=== PATIENT | female | born 1960 | race Caucasian/White ===

== ENCOUNTER 2020-04-09 12:01 | Outpatient (CLI) | payer BC, SELFPAY ==
[2020-04-09 12:55] LABS: Hematocrit 42.4 % (37.0-47.0); Hemoglobin 13.9 g/dL (12.0-15.0); Mean Corpuscular HGB Conc 32.8 g/dl (32-36); Mean Corpuscular Hemoglobin 30.5 pg (26-34); Mean Platelet Volume 8.8 fl (7.4-10.4); Platelet Count Result 265 k/mm3 (150-375); Red Blood Count 4.56 M/mm3 (4.2-5.4); Red Cell Distribution Width 12.5 % (11.5-14.5); White Blood Count 5.6 K/mm3 (4.5-10.0)
[2020-04-09 13:07] LABS: Alanine Aminotransferase 20 U/L (4-35); Albumin Level 4.2 g/dL (3.5-5.1); Alkaline Phosphatase 64 U/L (38-126); Anion Gap 8 mmol/L (8-16); Aspartate Amino Transferase 27 U/L (14-36); Bilirubin,Total 0.4 mg/dL (0.2-1.3); Blood Urea Nitrogen 14 mg/dL (7-17); Calcium 9.4 mg/dL (8.4-10.2); Carbon Dioxide 32 mmol/L (22-30); Chloride 101 mmol/L (98-107); Cholesterol 251 mg/dL (0-200); Estimated Glomerular Filt Rate > 60; Glucose 90 mg/dL (65-105); HDL Direct 48 mg/dL; Potassium 4.4 mmol/L (3.4-5.0); Sodium 141 mmol/L (137-145); Triglycerides 191 mg/dL (<150)
[2020-04-09 13:19] LABS: LDL Cholesterol Direct 165 mg/dL
[2020-04-09 13:45] LABS: Free T4 Free Thyroxine 0.93 ng/mL (0.78-2.19)
== END 2020-04-09 12:02 | disposition home or self-care (01) ==
PROVIDERS: PCP Internal Medicine; Visit Provider Nurse Practitioner Family
DX: Z00.01 Encounter for general adult medical examination with abnormal findings (principal)
CPT/HCPCS: 36415; 80053; 80061; 84439; 84443; 85027

== ENCOUNTER 2020-05-05 15:43 | Outpatient (CLI) | payer BC, SELFPAY ==
--- NOTE | ~2020-05-05 | MM_ITS ---
EXAMINATION: MM screening [facility] BI w jose angel HISTORY: Screening mammogram TECHNIQUE: Craniocaudal and mediolateral oblique 3-D tomosynthesis images were obtained and synthetic 2-D images were generated. CAD analysis was submitted and interpreted. COMPARISON: No prior mammogram is available for comparison at this institution. BREAST PARENCHYMAL COMPOSITION: There are scattered areas of fibroglandular density. FINDINGS: There is no evidence of suspicious mass, calcification, or architectural distortion to sugg est malignancy in either breast. There has been no suspicious interval change. IMPRESSION: 1. No mammographic evidence of malignancy. 2. Recommend routine screening mammography in one year. BI-RADS Category 1: Negative Reviewed, dictated and finalized at location A. N BELT
== END 2020-05-05 15:44 | disposition home or self-care (01) ==
PROVIDERS: PCP Internal Medicine; Visit Provider Internal Medicine
DX: Z12.31 Encounter for screening mammogram for malignant neoplasm of breast (principal)
CPT/HCPCS: 77063; 77067

== ENCOUNTER 2020-11-20 22:13 | Emergency (ER) | payer BC, SELFPAY ==
[2020-11-20] VITALS (7 sets, daily range): BP systolic 121–131; BP diastolic 80–86; PULSE 48–86; RESP 14–24; TEMP 37.6; O2SAT 95–98
--- NOTE | ~2020-11-20 | XR_ITS ---
EXAMINATION: XR chest 1V portable DATE: 11/20/2020 22:54 INDICATION: Shortness of breath. Cough. COVID-19 positive. TECHNIQUE: A single frontal view of the chest was obtained. COMPARISON: None. FINDINGS: There are mild airspace opacities in the lower lung zones. No pleural effusion or pneumotho rax. The heart size is normal. IMPRESSION: 1. Mild airspace opacities in the lower lung zones, consistent with atelectasis versus pneumonia. Reviewed, dictated and finalized at location A.
--- NOTE | 2020-11-20 22:22 | ECG_ITS ---
Measurements Intervals [place] Rate: 73 P: 61 MN: 142 QRS: 44 QRSD: 81 T: -2 QT: 360 QTc: 399 Interpretive Statements SINUS RHYTHM NONSPECIFIC T-WAVE ABNORMALITY- ANT/INF LEADS BORDERLINE ECG Electronically Signed On 11-21-2020 6:25:57 CDT by Jona Farley D.O.
--- NOTE | 2020-11-20 22:28 | ED.SOB ---
HPI - SOB/Dyspnea General Chief Complaint: Shortness of Breath/Dyspnea Stated Complaint: SOB, covid + Time Seen by Provider: 11/20/20 22:28 History of Present Illness HPI Narrative: 60 yo female presents to the ED for SOB. She was diagnosed with COVID-19 9 days ago. She has had cough, headache, mild temperature elevations. Tonight after coughing she could not catch her breath. No chest pain, nausea, vomiting, weakness, dizziness. Related Data Home Medications Medication Instructions Recorded Confirmed No Home Medications 11/20/20 11/20/20 Allergies Allergy/AdvReac Type Severity Reaction Status Date / Time No Known Allergies Allergy Verified 11/20/20 22:41 Review of Systems Review of Systems: All systems reviewed & are unremarkable except as noted in HPI and below Constitutional: Constitutional: Denies weakness ENT: Denies sore throat Cardiovascular: Cardiovascular: Denies chest pain Respiratory: Respiratory: Reports cough and Reports dyspnea Gastrointestinal: Gastrointestinal: Denies abdominal pain Genitourinary: Genitourinary: Reports no additional female genitourinary complaints Musculoskeletal: Musculoskeletal: Reports myalgias Neurologic: Reports system reviewed and no additional complaints, except as documented [facility] Social History Social History (Updated 11/20/20 @ 23:28 by Isra Woodward MD) Smoking status: Never smoker Gender identity (if verbalized by the patient): Female Exam Const: General: healthy appearing, no acute distress and alert Orientation/consciousness: patient oriented x3 HENMT: Head: normal to inspection Neck: Neck: normal visual inspection and no lymphadenopathy Resp: Effort & Inspection: normal respiratory effort Auscultation: clear to auscultation bilaterally, crackles bilateral at the base and no wheezes Cardio: Jugular venous distension: no JVD Rate: regular rate Rhythm: regular rhythm Heart sounds: no murmurs GI: Inspection: non-distended GI Palp: Yes Soft to palpation and No Tenderness to palpation present (GI) Skin: General skin exam: normal color Neuro: General: patient oriented x3 and moves all extremities Speech: normal speech Extrem: General: no edema Psych: Appearance: well kempt Affect: normal affect Course Vital Signs Vital signs: Vital Signs Temperature 37.6 C 11/20/20 22:21 Pulse Rate 48 L 11/20/20 22:21 Respiratory Rate 14 11/20/20 22:21 Blood Pressure 131/86 11/20/20 22:21 Pulse Oximetry 95 11/20/20 22:21 Temperature 37.6 C 11/20/20 22:21 Pulse Rate 86 11/20/20 23:45 Respiratory Rate 14 11/20/20 23:45 Blood Pressure 121/80 11/20/20 23:31 Pulse Oximetry 97 11/20/20 23:45 MDM - SOB/Dyspnea Differential Diagnosis Differential diagnosis: Likely other (COVID-19) Medical Records Attestation: I reviewed the patient's medical records. Lab Data Attestation: I reviewed the patient's lab results. Result diagrams: 11/20/20 22:29 11/20/20 22:29 Labs: Lab Results 11/20/20 11/20/20 Range/Units 22:29 22:29 WBC 3.8 L (4.5-10.0) K/mm3 RBC 4.39 (4.2-5.4) M/mm3 Hgb 13.4 (12.0-15.0) g/dL Hct 40.4 (37.0-47.0) % MCV 92.0 (80-100) fl MCH 30.5 (26-34) pg MCHC 33.2 (32-36) g/dl RDW 12.5 (11.5-14.5) % Plt Count 192 (150-375) k/mm3 MPV 9.1 (7.4-10.4) fl Immature Gran % (Auto) 0.5 (0-0.5) % Neut % (Auto) 43.1 L (45.5-73.1) % Lymph % (Auto) 47.8 H (18.3-44.2) % [place] % (Auto) 7.6 (2.6-8.5) % Eos % (Auto) 0.5 (0-4.4) % Baso % (Auto) 0.5 (0.2-1.2) % Lymph # (Auto) 1.82 (0.9-3.2) K/mm3 [place] # (Auto) 0.3 (0.1-0.6) K/mm3 Eos # (Auto) 0.0 (0-0.3) K/mm3 Baso # (Auto) 0.0 (0.0-0.1) K/mm3 Abs Immat Gran (auto) 0.02 (0.00-0.031) K/mm3 Absolute Neuts (auto) 1.6 (1.3-6.7) K/mm3 Absolute Nucleated RBC 0.0 (0.0-0.012) K/mm3 Nucleated RBC % 0.0 (0.0-0.2) % Sodium 140 (137-145) m
[2020-11-20 22:39] LABS: Basophils Percent Auto 0.5 % (0.2-1.2); Eosinophils Percent Auto 0.5 % (0-4.4); Hematocrit 40.4 % (37.0-47.0); Hemoglobin 13.4 g/dL (12.0-15.0); Immature Granulocyte Absolute 0.02 K/mm3 (0.00-0.031); Immature Granulocyte Percent A 0.5 % (0-0.5); Lymphocytes Absolute Auto 1.82 K/mm3 (0.9-3.2); Lymphocytes Percent Auto 47.8 % (18.3-44.2); Mean Corpuscular HGB Conc 33.2 g/dl (32-36); Mean Corpuscular Hemoglobin 30.5 pg (26-34); Mean Platelet Volume 9.1 fl (7.4-10.4); Monocytes Absolute Auto 0.3 K/mm3 (0.1-0.6); Monocytes Percent Auto 7.6 % (2.6-8.5); Neutrophils Absolute Auto 1.6 K/mm3 (1.3-6.7); Neutrophils Percent Auto 43.1 % (45.5-73.1); Platelet Count Result 192 k/mm3 (150-375); Red Blood Count 4.39 M/mm3 (4.2-5.4); Red Cell Distribution Width 12.5 % (11.5-14.5); White Blood Count 3.8 K/mm3 (4.5-10.0)
[2020-11-20 22:58] LABS: Anion Gap 8 mmol/L (8-16); Blood Urea Nitrogen 12 mg/dL (7-17); Calcium 8.9 mg/dL (8.4-10.2); Carbon Dioxide 28 mmol/L (22-30); Chloride 104 mmol/L (98-107); Estimated CRCL calculation 73 ml/min; Estimated Glomerular Filt Rate > 60; Glucose 89 mg/dL (65-110); Potassium 3.9 mmol/L (3.4-5.0); Sodium 140 mmol/L (137-145)
--- NOTE | 2020-11-20 23:15 | PC.NURSE ---
Report received from PAULO Lai. Assumed care of patient at this time.
[2020-11-20] MEDS: ALBUTEROL SULFATE NEB 2.5 MG/0.5 ML INH 5 MG INHALATION (23:46)
--- NOTE | 2020-11-21 00:17 | PC.NURSE ---
Patient states she feels better after her inhaler/treatment. ERP notified.
--- NOTE | 2020-11-21 00:26 | PC.NURSE ---
Contacted patient's daughter Melissa Garcia at [phone] and informed her that the patient is being discharged. She stated she will come pick her up.
[2020-11-21 00:35] VITALS: BP 125/84; PULSE 87; RESP 20; TEMP 36.7; O2SAT 97
== END 2020-11-21 00:37 | disposition home or self-care (01) ==
LOC: ANHED 23:53
PROVIDERS: Emergency Provider Emergency Medicine; PCP Internal Medicine
DX: U07.1 COVID-19 (principal); R91.8 Other nonspecific abnormal finding of lung field; R94.31 Abnormal electrocardiogram [ECG] [EKG]
CPT/HCPCS: 36415; 71045; 80048; 85025; 93005; 94640; 99283

== ENCOUNTER 2021-03-31 14:20 | Outpatient (CLI) | payer BC, SELFPAY | END 2021-03-31 14:21 | disposition home or self-care (01) | LOC: ANHBWCAUD 14:21 | PROVIDERS: PCP Internal Medicine; Visit Provider Otolaryngology | DX: H91.90 Unspecified hearing loss, unspecified ear (principal) | CPT/HCPCS: 92553; 92567 ==

== ENCOUNTER 2021-04-22 13:55 | Outpatient (CLI) | payer BC, SELFPAY ==
[2021-04-22 14:28] LABS: Hematocrit 41.3 % (37.0-47.0); Hemoglobin 13.6 g/dL (12.0-15.0); Mean Corpuscular HGB Conc 32.9 g/dl (32-36); Mean Corpuscular Hemoglobin 30.8 pg (26-34); Mean Corpuscular Volume 93.4 fl (80-100); Mean Platelet Volume 9.1 fl (7.4-10.4); Platelet Count Result 238 k/mm3 (150-375); Red Blood Count 4.42 M/mm3 (4.2-5.4); Red Cell Distribution Width 12.4 % (11.5-14.5); White Blood Count 5.8 K/mm3 (4.5-10.0)
[2021-04-22 14:50] LABS: Alanine Aminotransferase 23 U/L (4-35); Albumin Level 4.5 g/dL (3.5-5.1); Alkaline Phosphatase 64 U/L (38-126); Anion Gap 6 mmol/L (8-16); Aspartate Amino Transferase 29 U/L (14-36); Bilirubin,Total 0.5 mg/dL (0.2-1.3); Blood Urea Nitrogen 14 mg/dL (7-17); Calcium 9.3 mg/dL (8.4-10.2); Carbon Dioxide 30 mmol/L (22-30); Chloride 102 mmol/L (98-107); Cholesterol 242 mg/dL (0-200); Estimated Glomerular Filt Rate > 60; Glucose 85 mg/dL (65-110); HDL Direct 55 mg/dL; Potassium 4.7 mmol/L (3.4-5.0); Sodium 138 mmol/L (137-145); Triglycerides 139 mg/dL (<150)
[2021-04-22 15:00] LABS: LDL Cholesterol Direct 148 mg/dL
[2021-04-22 17:10] LABS: Free T4 Free Thyroxine Reflex 0.83 ng/dL (0.78-2.19)
[2021-04-22 18:15] LABS: Total Triiodothyronine (T3) 1.36 NG/ML (0.97-1.69)
== END 2021-04-22 13:56 | disposition home or self-care (01) ==
PROVIDERS: PCP Internal Medicine; Visit Provider Nurse Practitioner Family
DX: Z00.01 Encounter for general adult medical examination with abnormal findings (principal)
CPT/HCPCS: 36415; 80053; 80061; 84439; 84443; 84480; 85027

== ENCOUNTER 2023-01-18 21:25 | Emergency (ER) | payer BC, SELFPAY ==
--- NOTE | ~2023-01-18 | CT_ITS ---
CT ANGIOGRAM NECK AND HEAD History: Dizziness. Technique: Axial noncontrast imaging of the brain was performed. Serial spiral axial images through t he head and neck were and obtained during arterial phase IV injection of 100 cc of Omnipaque 350. 3-D postprocessing and MIP images were then reconstructed on the remote workstation. Dose reduction tech nique was used on this scan by utilizing automated exposure control and iterative reconstruction tech nique. The dose-length product (DLP) was 1609.26 mGy-cm. CTA neck findings: Bilateral vertebral arteries are patent. Bilateral common carotid, internal carot id, and external carotid arteries are patent. No large vessel occlusion. No stenosis or aneurysm. The proximal right internal carotid artery demonstrates 0% stenosis relative to the normal distal artery lumen diameter. The proximal left internal carotid artery demonstrates 0% stenosis relative to the n ormal distal artery lumen diameter. CTA head findings: Distal vertebral arteries, basilar artery, and posterior cerebral arteries are pat ent. Distal internal carotid arteries, middle cerebral arteries, and anterior cerebral arteries are p atent. No large vessel occlusion. No stenosis or aneurysm. Axial noncontrast imaging of the brain is unremarkable. No acute infarct, intracranial hemorrhage, or mass lesion identified. Ventricles and subarachnoid spaces are nondilated. Muñoz-white differentiatio n is preserved. Paranasal sinuses and mastoid air cells are clear. Impression: No significant abnormality seen. Reviewed, dictated and finalized at [facility]. Impression: No significant abnormality seen.
[2023-01-18 21:32] VITALS: BP 156/85; PULSE 58; RESP 16; TEMP 36.4; O2SAT 99
[2023-01-18 21:55] VITALS: PULSE 59
[2023-01-18 21:56] VITALS: BP 145/85; PULSE 58; RESP 16; O2SAT 98
[2023-01-18 22:00] VITALS: BP 135/80; PULSE 60; RESP 13; O2SAT 97
[2023-01-19] VITALS (7 sets, daily range): BP systolic 124–148; BP diastolic 64–76; PULSE 54–70; RESP 13–20; O2SAT 96–99
--- NOTE | 2023-01-19 | ECG_ITS ---
Measurements Intervals [place] Rate: 53 P: 45 LA: 123 QRS: 48 QRSD: 86 T: 10 QT: 420 QTc: 395 Interpretive Statements SINUS BRADYCARDIA NONSPECIFIC T-WAVE ABNORMALITY NO PREVIOUS ECG AVAILABLE FOR COMPARISON Electronically Signed On 01-19-2023 15:43:00 CDT by Sue Sullivan M.D.
[2023-01-19] MEDS: SODIUM CHLORIDE 0.9% IV 1,000 ML 999 ML IV CONT (00:04)
[2023-01-19] MEDS: ONDANSETRON INJ 4 MG/2 ML VIAL IV PUSH (00:05)
[2023-01-19] MEDS: MECLIZINE HCL 25 MG TABLET PO (00:06)
[2023-01-19 00:17] LABS: Basophils Absolute Auto 0.1 K/mm3 (0.0-0.1); Basophils Percent Auto 0.6 % (0.2-1.2); Eosinophils Absolute Auto 0.2 K/mm3 (0-0.3); Eosinophils Percent Auto 2.3 % (0-4.4); Hematocrit 39.3 % (37.0-47.0); Hemoglobin 12.7 g/dL (12.0-15.0); Immature Granulocyte Absolute 0.02 K/mm3 (0.00-0.031); Immature Granulocyte Percent A 0.3 % (0-0.5); Lymphocytes Absolute Auto 1.58 K/mm3 (0.9-3.2); Lymphocytes Percent Auto 20.4 % (18.3-44.2); Mean Corpuscular HGB Conc 32.3 g/dl (32-36); Mean Corpuscular Hemoglobin 30.6 pg (26-34); Mean Corpuscular Volume 94.7 fl (80-100); Mean Platelet Volume 8.8 fl (7.4-10.4); Monocytes Absolute Auto 0.5 K/mm3 (0.1-0.6); Monocytes Percent Auto 6.4 % (2.6-8.5); Neutrophils Absolute Auto 5.4 K/mm3 (1.3-6.7); Platelet Count Result 231 k/mm3 (150-375); Red Blood Count 4.15 M/mm3 (4.2-5.4); Red Cell Distribution Width 12.5 % (11.5-14.5); White Blood Count 7.8 K/mm3 (4.5-10.0)
[2023-01-19 00:24] LABS: Appearance Urine Clear (Clear); Bacteria Urine None Seen /hpf; Bilirubin Urine Negative (Negative); Blood Urine Trace (Negative); Color Urine Yellow (Yellow); Glucose Urine UA Negative (Negative); Ketones Urine Negative (Negative); Leukocyte Esterase Ur Negative LEU/UL (Negative); Nitrate Urine Negative (Negative); Non Pathogenic Casts 0-2; Protein Urine Negative (Negative); RBC Urine 0-2 /hpf (0-2); Specific Grav Ur 1.023 (1.001-1.035); Squamous Epithelial Cell Urine None seen /hpf (Few); Urobilinogen Urine 0.2 mg/dL (<2.0); WBC Urine 0-5 /hpf
[2023-01-19 00:31] LABS: Add Urine Microscopic? YES
[2023-01-19 00:37] LABS: Alanine Aminotransferase 24 U/L (6-35); Albumin Level 4.4 g/dL (3.5-5.1); Alkaline Phosphatase 54 U/L (38-126); Anion Gap 6 mmol/L (8-16); Aspartate Amino Transferase 29 U/L (14-36); Bilirubin,Total 0.6 mg/dL (0.2-1.3); Blood Urea Nitrogen 17 mg/dL (7-17); Calcium 8.9 mg/dL (8.4-10.2); Carbon Dioxide 29 mmol/L (22-30); Chloride 105 mmol/L (98-107); Estimated Glomerular Filt Rate > 60; Glucose 107 mg/dL (65-110); Potassium 4.1 mmol/L (3.4-5.0); Sodium 140 mmol/L (137-145)
[2023-01-19 00:48] LABS: Troponin I < 0.012 ng/mL (0.000-0.034)
--- NOTE | 2023-01-19 00:57 | ED.DIZZY ---
HPI - Dizziness General Chief Complaint: Dizziness Stated Complaint: dizzy, weak Time Seen by Provider: 01/18/23 22:30 History of Present Illness HPI Narrative: Patient brought to the emergency department by EMS from home for a episode of dizziness. She is accompanied by her daughter. Patient is primarily Indonesian-speaking but the timber hand and the daughter translate for her. She had a similar episode last year. She describes vertigo. A sensation of dizziness and the daughter has a picture of her eyes that is consistent with nystagmus. Patient states movement makes her dizziness worse. She was very nauseous but did not throw up. Patient also states she cannot walk very well due to being dizzy. Denies all other review of systems including headache chest pain abdominal pain fevers and chills. Her blood pressure increased during the episode but has now improved without intervention Related Data Home Medications Medication Instructions Recorded Confirmed atorvastatin 20 mg tablet 1 mg PO BID 01/18/23 01/18/23 metoprolol succinate 25 mg capsule 25 mg PO DAILY 01/18/23 01/18/23 sprinkle, ext. release 24 hr Allergies Allergy/AdvReac Type Severity Reaction Status Date / Time No Known Allergies Allergy Verified 01/18/23 21:56 Review of Systems Review of Systems: Review of systems negative except what is documented in the HPI Exam Narrative: GENERAL: Well-appearing, well-nourished, and in no acute distress. HEAD: Normocephalic, atraumatic. EYES: PERRLA and EOMI. ENT: Nares clear, no rhinorrhea or epistaxis. Mucous membranes moist. NECK: Supple. CHEST: Clear to auscultation. No respiratory distress. HEART: Regular rate and rhythm. ABDOMEN: Soft, nontender, nondistended. EXTREMITIES: Normal range of motion. No edema. SKIN: Warm, dry, no rash. NEURO: No focal deficits. Alert and oriented x3. PSYCH: Normal mood and affect. Course Course Emergency Course: Differential diagnosis includes but not limited to vertigo, posterior stroke, inner ear infection, electrolyte abnormality, dehydration Labs and CTA head ordered Patient also given meclizine and Zofran Vital Signs Vital signs: Vital Signs Temperature 36.4 C 01/18/23 21:32 Pulse Rate 58 L 01/18/23 21:32 Respiratory Rate 16 01/18/23 21:32 Blood Pressure 156/85 H 01/18/23 21:32 Pulse Oximetry 99 01/18/23 21:32 Oxygen Delivery Room Air 01/18/23 21:32 Temperature 36.4 C 01/18/23 21:32 Pulse Rate 57 L 01/19/23 00:08 Respiratory Rate 13 01/19/23 00:08 Blood Pressure 124/73 01/19/23 00:08 Pulse Oximetry 98 01/19/23 00:08 Oxygen Delivery Room Air 01/18/23 21:32 MDM - Dizziness MDM Narrative Medical decision making narrative: [id number] Labs grossly unremarkable patient ambulating around the department without symptoms CTA head results pending 0 2:35 AM CTA negative for acute stenosis or dissection. No aneurysm noted. Clinical presentation consistent with vertigo. Will DC with follow-up Lab Data 01/19/23 00:08 01/19/23 00:08 Labs: Lab Results 01/19/23 01/19/23 Range/Units 00:08 00:08 WBC 7.8 (4.5-10.0) K/mm3 RBC 4.15 L (4.2-5.4) M/mm3 Hgb 12.7 (12.0-15.0) g/dL Hct 39.3 (37.0-47.0) % MCV 94.7 (80-100) fl MCH 30.6 (26-34) pg MCHC 32.3 (32-36) g/dl RDW 12.5 (11.5-14.5) % Plt Count 231 (150-375) k/mm3 MPV 8.8 (7.4-10.4) fl Immature Gran % (Auto) 0.3 (0-0.5) % Neut % (Auto) 70.0 (45.5-73.1) % Lymph % (Auto) 20.4 (18.3-44.2) % [place] % (Auto) 6.4 (2.6-8.5) % Eos % (Auto) 2.3 (0-4.4) % Baso % (Auto) 0.6 (0.2-1.2) % Lymph # (Auto) 1.58 (0.9-3.2) K/mm3 [place] # (Auto) 0.5 (0.1-0.6) K/mm3 Eos # (Auto) 0.2 (0-0.3) K/mm3 Baso # (Auto) 0.1 (0.0-0.1) K/mm3 Abs Immat Gran (auto) 0.02 (0.00-0.031) K/mm3 Absolute Neuts (auto) 5.4 (1.3-6.7) K/mm3 Absolute Nucleated RBC 0.0 (0.0-0.012) K/m
== END 2023-01-19 02:57 | disposition home or self-care (01) ==
PROVIDERS: Emergency Provider Emergency Medicine; PCP Internal Medicine
DX: R42 Dizziness and giddiness (principal); R00.1 Bradycardia, unspecified; R94.31 Abnormal electrocardiogram [ECG] [EKG]
CPT/HCPCS: 36415; 70496; 70498; 80053; 81001; 84484; 85025; 93005; 96361; 96374; 99284; A9270; J2405; J7030; Q9967